=== PATIENT | male | born 1990 | race Two or more races ===

== ENCOUNTER 2016-08-03 22:02 | Emergency (ER) | payer OTHER ==
[~2016-08-03] VITALS: Ht 162.6 cm; Wt 62.6 kg
[2016-08-03 23:33] LABS: EOSINOPHILS % (AUTO) 0.4 % (0.0-7.0); HEMATOCRIT 44.8 % (40.0-50.0); HEMOGLOBIN 15.5 g/dL (14.0-18.0); LYMPHOCYTES # (AUTO) 1.2 K/uL (0.8-4.8); LYMPHOCYTES % (AUTO) 9.5 % (20.5-51.5); MEAN CORPUSCULAR HEMOGLOBIN 30.7 uug (27.0-31.0); MEAN CORPUSCULAR HGB CONC 35 g/dL (32.0-37.0); MEAN CORPUSCULAR VOLUME 88.8 fL (82.0-92.0); MONOCYTES # (AUTO) 0.5 K/uL (0.1-1.30); MONOCYTES % (AUTO) 4.2 % (0.0-11.0); NEUTROPHILS # (AUTO) 10.6 K/uL (1.8-8.9); NEUTROPHILS % (AUTO) 85.9 % (38.5-71.5); PLATELET COUNT (AUTO) 158 K/uL (150-450); RED BLOOD CELL COUNT(AUTO) 5.04 MIL/uL (4.70-6.10); RED CELL DISTRIBUTION WIDTH 12.8 % (11.5-14.5); WHITE BLOOD COUNT (AUTO) 12.3 K/uL (4.0-11.2)
[2016-08-03 23:34] LABS: CALCIUM 8.3 mg/dL (8.5-10.1); CREATININE 0.9 mg/dL (0.6-1.3); POTASSIUM 3.7 mmol/L (3.5-5.1)
[2016-08-04] MEDS ORDERED: ONDANSETRON IV *ER 4 MG/2 ML VIAL IM ONE
--- NOTE | 2016-08-04 00:28 | NUR ---
Patient observed walking around the ER, when asked he states that he is "looking for the restroom." Patient re-directed multiple times and continued to try to elope. Patient observed hiding behind the wall from staff. When patient was provided education regarding his pending discharge into sister's custody he stated that he "needs to go bean picker his ." Patient confused and aggressive with staff, when instructed to return to bed patient replied "make me." Patient refused to comply with verbal direction, posed an elopement risk, and was threatening staff "if you touch me." Kristen ASTUDILLO called, patient returned to bed with assistance from Security staff.
[2016-08-04] MEDS ORDERED: ONDANSETRON 4 MG/2 ML VIAL ONE (00:39)
--- NOTE | 2016-08-04 00:47 | NUR ---
Patient argued with bed mate and I had to separate both parties. Patient threatened nurse stating, "I know where you work". The patient then asked me, "What's your name"? Then he goes on to say, "I know where to find you".
--- NOTE | 2016-08-04 01:35 | NUR ---
[facility] HERE TO PICK PATIENT UP. WAITING FOR RESPONSE BY PD.
--- NOTE | 2016-08-04 01:36 | NUR ---
[facility] DETERMINED THAT HE COULD NOT BE BOOKED/ARRESTED. [facility]'S INFORMATION IS: [id number]. OFFICER: LISSA COKER # [id number] AND GEN COKER #[id number] AND [id number]
--- NOTE | 2016-08-04 01:55 | NUR ---
Patient discharged to home in stable conditon. Written and verbal after care instructions given. Patient verbalizes understanding of instructions.
[2016-08-04 02:04] VITALS: BP 128/79
== END 2016-08-04 01:55 | disposition home or self-care (01) ==
LOC: ER 22:02
DX: F10.129 Alcohol abuse with intoxication, unspecified (principal)
CPT/HCPCS: 36415; 85025; A4663; G6040-TC; J2405